=== PATIENT | male | born 1960 | race Asian ===

== ENCOUNTER 2018-07-09 08:20 | Inpatient (IN) | payer OTHER ==
[~2018-07-09] VITALS: Ht 162.6 cm; Wt 83.5 kg
[2018-07-09] VITALS (12 sets, daily range): BP systolic 98–136; BP diastolic 61–80
[2018-07-09] MEDS ORDERED: LISINOPRIL40 MG ORAL (10:32)
[2018-07-09] MEDS ORDERED: LISINOPRIL20 MG ORAL (10:32)
[2018-07-09] MEDS ORDERED: ATORVASTATIN CA20 MG ORAL (10:33)
[2018-07-09] MEDS ORDERED: ALLOPURINOL300 M1 ORAL (10:33)
[2018-07-09] MEDS ORDERED: TAMSULOSIN HCL0.4 MG ORAL (10:34)
[2018-07-09] MEDS ORDERED: ISOSORBIDE MONO30 M1 PO (10:34)
[2018-07-09] MEDS ORDERED: AMLODIPINE BESYL5 MG ORAL (10:35)
[2018-07-09] MEDS ORDERED: DYMISTA NASAL S23 GM NASAL (10:36)
[2018-07-09] MEDS ORDERED: FLUTICASONE PRO16 G1 NASAL (10:37)
[2018-07-09] MEDS ORDERED: PRESERVISION A1 EACH PO (10:38)
--- NOTE | 2018-07-09 11:24 | Anethesia Preoperative Eval ---
Anesthesia Pre-op PMH/ROS General Date of Evaluation: Jul 09, 2018 Anesthesiologist: Tomas ASA Score: ASA 2 Mallampati Score Class I : Soft palate, uvula, fauces, pillars visible Class II: Soft palate, uvula, fauces visible Class III: Soft palate, base of uvula visible Class IV: Only hard plate visible Mallampati Classification: Class III Surgeon: Alma Rosa Diagnosis: Lumbar radiculopathy Surgical Procedure: TLIF L4-5 Anesthesia History: none Social History: drug use - daily CBD use Family History: no anesthesia problems Allergies: Coded Allergies: AMOXICILLIN (Verified Adverse Reaction, Intermediate, diarrhea, 07/08/18) Patient NPO?: Yes NPO Date: Jul 08, 2018 NPO Time: 2300 Past Medical History Cardiovascular: Reports: HTN, other - HLD, h/o angina-but solely presents when patient is having an anxiety attact. Cardiac workup negative. Patient able to walk 10+ (unlimitted number of blocks) and go up 10+ flights of stairs without angina or dyspnea.; Denies: CAD, SD, valve dz, arrhythmia Pulmonary: Denies: asthma, COPD, JAMES, other Gastrointestinal/Genitourinary: Reports: GERD, other - BPH; Denies: CRI, ESRD Neurologic/Psychiatric: Reports: depression/anxiety; Denies: dementia, CVA, TIA, other Endocrine: Denies: DM, hypothyroidism, steroids, other HEENT: Reports: other - macular degeneration-bilateral, tinnitus, TMJ; Denies: cataract (L), cataract (R), glaucoma, YOCHA DEHE (L), YOCHA DEHE (R) Hematology/Immune: Denies: anemia, DVT, bleeding disorder, other Musculoskeletal/Integumentary: Reports: OA, other - gout; Denies: RA, DJD, DDD, edema PSxH Narrative: septoplasty Anesthesia Pre-op Phys. Exam Physician Exam Last Vital Signs Date Time Temp Pulse Resp B/P (MAP) Pulse Ox O2 Delivery O2 Flow Rate FiO2 07/09/18 11:15 Room Air 07/09/18 11:12 97.7 54 20 105/62 (76) 97 Constitutional: NAD Cardiovascular: RRR Respiratory: CTA Airway Exam Mallampati Score: Class III MO: full ROM: full Teeth: missing - 1 bottom right, intact Anesthesia Pre-op A/P Labs see chart Studies Pre-op Studies: EKG - sr Risk Assessment & Plan Assessment: ASA II Plan: GA Status Change Before Surgery: No Pre-Antibiotics Drug: Ancef 2g Given Within 1 Hr of Incision: Yes Fallon Fajardo MD Jul 09, 2018 11:24
[2018-07-09] MEDS ORDERED: LR 1000ml 1,000 ML IVLG SCH (11:31)
[2018-07-09] MEDS ORDERED: Thrombin 5000 units spray kit TOPIC ONE (11:38)
[2018-07-09] MEDS ORDERED: Thrombin 5000 units TOPIC ONE ×2 (11:38→11:40)
[2018-07-09] MEDS ORDERED: Gelfoam Size TOPIC ONE (11:39)
[2018-07-09] MEDS ORDERED: Bupivacaine 0.5% Inj 30 ml vial INJ ONE (11:39)
[2018-07-09] MEDS ORDERED: Lidocaine 1% 10mg/ml/Epi 0.005mg/ml 30ml vial INJ ONE (11:39)
[2018-07-09] MEDS ORDERED: Bacitracin 50000 Units Vial ONE (11:39)
[2018-07-09] MEDS ORDERED: Gelfoam Absorbable 1gm powder pkt TOPIC ONE (11:39)
[2018-07-09] MEDS ORDERED: SAM E PO (11:40)
[2018-07-09] MEDS ORDERED: CITALOPRAM HBR40 M1 ORAL (11:40)
[2018-07-09] MEDS ORDERED: DHEA TABLET1 EACH PO (11:42)
[2018-07-09] MEDS ORDERED: GARLIC1000 MG PO (11:42)
[2018-07-09] MEDS ORDERED: CILOSTAZOL100 MG PO (11:43)
[2018-07-09] MEDS ORDERED: SUPER B-50 COM1 EACH PO (11:44)
[2018-07-09] MEDS ORDERED: LORazepam Inj 2mg/ml 1ml IV PRN (11:45)
[2018-07-09] MEDS ORDERED: Midazolam 2mg/2ml Inj IVP PRN (11:45)
[2018-07-09] MEDS ORDERED: fentaNYL 100 mcg/2 mL IV PRN (11:45)
[2018-07-09] MEDS ORDERED: DiphenhydrAMINE 50mg/ml Inj IVP PRN ×2 (11:45→18:15)
[2018-07-09] MEDS ORDERED: DICLOFENAC SODI75 MG ORAL (11:45)
[2018-07-09] MEDS ORDERED: Hydromorphone 0.5mg/0.5ml inj IVP PRN (11:45)
[2018-07-09] MEDS ORDERED: Metoclopramide 10mg/2ml Inj IVP PRN (11:45)
[2018-07-09] MEDS ORDERED: [UNRECOGNIZED DRUG - OTHER] PO (11:47)
[2018-07-09] MEDS ORDERED: CRANBERRY500 M4 PO (11:50)
[2018-07-09] MEDS ORDERED: CULTURELLE1 EACH ORAL (11:51)
[2018-07-09] MEDS ORDERED: fentaNYL 100 mcg/2 mL IV ONE ×2 (11:51→15:28)
[2018-07-09] MEDS ORDERED: Midazolam 2mg/2ml Inj ONE (11:51)
[2018-07-09] MEDS ORDERED: Lidocaine 1% MPF 10mg/ml 5ml ONE (11:51)
[2018-07-09] MEDS ORDERED: Propofol 200mg/20ml IV ONE (11:51)
[2018-07-09] MEDS ORDERED: LORATADINE10 M2 PO (11:52)
[2018-07-09] MEDS ORDERED: Dexamethasone 4mg/ml vial ONE (11:52)
[2018-07-09] MEDS ORDERED: TEMAZEPAM15 MG ORAL (11:53)
[2018-07-09] MEDS ORDERED: Lidocaine 1% Plain 30 ml INJ ONE ×2 (11:53→15:06)
[2018-07-09] MEDS ORDERED: MECLIZINE HCL25 MG ORAL (11:53)
[2018-07-09] MEDS ORDERED: LIDOCAINE 5% TOPIC (11:56)
--- NOTE | 2018-07-09 11:56 | Pre-Procedure Note/Attestation ---
Pre-Procedure Note/Attestation Complete Prior to Procedure Planned Procedure: left Procedure Narrative: L4-5 TLIF Indications for Procedure Pre-Operative Diagnosis: L4-5 disc hernia / movement Attestation I attest that I discussed the nature of the procedure; its benefits; risks and complications; and alternatives (and the risks and benefits of such alternatives ), prior to the procedure, with the patient (or the patient's legal education courses sales representative). I attest that, if there was a reasonable possibility of needing a blood transfusion, the patient (or the patient's legal education courses sales representative) was given the [facility] standardized written summary, pursuant to the Migue Perri Blood Safety Act ([place] Health and Safety Code # 1645, as amended). I attest that I re-evaluated the patient just prior to the surgery and that there has been no change in the patient's H&P, except as documented below: LACHO GONZALEZ Jul 09, 2018 11:56
[2018-07-09] MEDS ORDERED: CENTRUM COMPLE1 EAC1 PO (11:58)
[2018-07-09] MEDS ORDERED: LR 1000ml ONE (12:00)
[2018-07-09] MEDS ORDERED: Sterile Water Irrig 1000ml IRRIG ONE (12:00)
[2018-07-09] MEDS ORDERED: NS Irrig 1000ml IRRIG ONE ×2 (12:12→13:32)
[2018-07-09] MEDS ORDERED: Meclizine 25mg tab ORAL PRN (12:30)
[2018-07-09] MEDS ORDERED: Chloraseptic Spray 20mL Bottle ORAL PRN (12:30)
[2018-07-09] MEDS ORDERED: Hydromorphone 0.5mg/0.5ml inj SUBQ PRN (12:30)
[2018-07-09] MEDS ORDERED: Rate Change PCA 1 Each MISC PRN (12:45)
[2018-07-09] MEDS ORDERED: PCA HYDROmorphone 1mg/ml 30 ML IV PRN (13:30)
[2018-07-09] MEDS ORDERED: Zemuron 50mg/5ml Inj IV ONE (13:59)
[2018-07-09] MEDS ORDERED: Bupivacaine 0.25% Inj 30ml INJ ONE (15:29)
[2018-07-09] MEDS ORDERED: Isovue-M 300 15ml INJ ONE (15:29)
[2018-07-09] MEDS ORDERED: Neostigmine 1mg/ml 10ml Inj ONE (15:41)
[2018-07-09] MEDS ORDERED: Glycopyrrolate 0.2mg/ml 1ml Vial ONE (15:41)
--- NOTE | 2018-07-09 16:27 | Brief Operative Note ---
Immediate Post Operative Note Operative Note Chief Complaint: LBP Pre-op Diagnosis: L4-5 disc hernia / movement Procedure: Left L4-5 TLIF Post-op Diagnosis: same as pre-op Findings: consistent w/pre-op dx studies Surgeon: Charles St Offset Lithographic Press Operator: Bhavya Paul Anesthesiologist: Treva Marin Anesthesia: general Specimen: yes - DIsc Complications: none Condition: stable Fluids: See Anesths Estimated Blood Loss: minimal Drains: hemovac Implant(s) used?: Yes - LACHO Wilkinson Jul 09, 2018 16:27
--- NOTE | 2018-07-09 16:45 | Immediate Post-Op Evaluation ---
Immediate Post-Op Evalulation Immediate Post-Op Evalulation Procedure: TLIF L4-5 Date of Evaluation: Jul 09, 2018 Time of Evaluation: 16:45 IV Fluids: 1.7L Blood Products: 0 Estimated Blood Loss: 100 Urinary Output: 220 Blood Pressure Systolic: 100 Blood Pressure Diastolic: 75 Pulse Rate: 55 Respiratory Rate: 17 O2 Sat by Pulse Oximetry: 100 Temperature (Fahrenheit): 98.1 Pain Score (1-10): 0 Nausea: No Vomiting: No Complications 0 Patient Status: awake, reacts, patent, none Hydration Status: adequate Drug: Ancef 2g Given Within 1 Hr of Incision: Yes Fallon Fajardo MD Jul 09, 2018 16:45
--- NOTE | 2018-07-09 18:39 | NUR ---
NURSE NOTES: Received report from ELAN Ambriz from PACU. Pt in bed, resting, sleepy, but talkative. Vitals obtain, assessment done, see flowsheet. SECURITY CHECKER running according to order, Clear Liquid diet tray at bedside for pt when ready, SCD on and working, belongings verified and at bedside, bed in lowest position, call light within reach.
[2018-07-09] MEDS: PCA shift volume MISC SCH (19:00)
[2018-07-09] MEDS: Flonase Nasal Inhaler 16gm NASAL SCH (19:02)
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
--- NOTE | 2018-07-09 19:42 | NUR ---
HAND-OFF: Report given to ELAN Sanchez.
--- NOTE | 2018-07-09 19:45 | NUR ---
NURSE NOTES: Received report from ELAN Maciel. Received pt lying in bed, AOX4, denies pain at this time. Pt on VICE PRESIDENT CORPORATE COMMUNICATIONS for pain management. VICE PRESIDENT CORPORATE COMMUNICATIONS setting checked and verified. Surgical dressing C/D/I. Hemovac in place serosanguineous drainage. Encouraged pt to use IS every hour x 10 while awake. Pt verbalized understanding. Burris catheter with yellow output. No distress noted. Bed in lowest position and locked, side rails up x 2, call light within reach. Will continue to monitor.
[2018-07-09] MEDS ORDERED: PCA Education Pamphlet MISC ONE (20:00)
--- NOTE | 2018-07-09 20:00 | NUR ---
NURSE NOTES: Pt c/o dry eyes. Paged Dr. Prater awaiting for call back.
--- NOTE | 2018-07-09 20:20 | NUR ---
NURSE NOTES: Dr. Prater called back orders given for dry eyes. Will carry out order.
[2018-07-09] MEDS: ceFAZolin sod 1 GM in D5W 55 ML IV SCH (20:39)
[2018-07-09] MEDS: Atorvastatin 20mg tab ORAL SCH (20:42)
[2018-07-09] MEDS: Tamsulosin 0.4mg cap ORAL SCH (20:43)
[2018-07-09] MEDS ORDERED: Artificial Tears 1.4% Op Soln BOTH EYES PRN (20:45)
[2018-07-09] MEDS: Lisinopril 20mg tab ORAL SCH (20:49)
[2018-07-09] MEDS ORDERED: Dronabinol 2.5mg Cap ORAL SCH (21:00)
[2018-07-09] MEDS: oxyCODONE 5mg IR tab ORAL PRN (23:42)
[2018-07-10] VITALS: BP 116/75
[2018-07-10 04:00] VITALS: BP 144/63
[2018-07-10] MEDS: ceFAZolin sod 1 GM in D5W 55 ML IV SCH ×2 (04:16→12:22)
--- NOTE | 2018-07-10 04:30 | NUR ---
NURSE NOTES: Assisted pt to the restroom, pt states "I have to have a bowel movement", offered bedpan, pt refused. Pt ambulated to the restroom with walker, gait steady, no B.M. Pt safely back to bed without any problems.
--- NOTE | 2018-07-10 04:45 | NUR ---
NURSE NOTES: Pt c/o generalize itchiness, Benadryl 25mg PO last given at 0415. Pt is requesting additional Benadryl 50mg for itching. Also, pt wants Dr. Prater to order all his supplement medications. Paged Dr. Prater, awaiting for call back.
--- NOTE | 2018-07-10 05:15 | NUR ---
NURSE NOTES: Dr. Prater called back did not want to order additional Benadryl 50mg PO. Per Dr. Prater, he is on his way to see the pt and he will take care of it.
--- NOTE | 2018-07-10 05:20 | NUR ---
NURSE NOTES: Assessed pt pain level, per pt pain his pain level is 8/10. offered Dilaudid 0.5mg sub cut., pt refused. RN offered Oxycodone 10mg PO, pt refused. Pt states "My pain is not that bad, I will call you when I can no longer handle it".
--- NOTE | 2018-07-10 05:35 | NUR ---
NURSE NOTES: Dr. Prater here to see pt., informed MD that pt refused Dilaudid sub cut and Oxycodone pain medication. Urine toxicology collected and taken down to lab per Dr. Prater's order.
[2018-07-10] MEDS ORDERED: HYDROcodone/Acetamin 10/325 tab ORAL PRN (06:00)
[2018-07-10] MEDS ORDERED: HydrOXYzine tab 25mg tab ORAL SCH (06:00)
[2018-07-10] MEDS ORDERED: Artificial Tears 1.4% Op Soln BOTH EYES SCH (06:00)
[2018-07-10] MEDS ORDERED: Artificial Tears 1.4% Op Soln BOTH EYES PRN (06:15)
--- NOTE | 2018-07-10 06:54 | NUR ---
CASE MANAGEMENT:REVIEW 07/09/18 57 YR OLD MALE HERE FOR ELECTIVE SURGERY SI:LOWER BACK PAIN 97.7 54 20 105/62 97% ON RA IS: TO SURGERY: LEFT L4-5 TLIF : TO MED/SURG 3 EAST POST OP INTERQUAL CRITERIA MET 07/10/18 SI: POD #1 97.7 61 20 144/63 100% ON 2L/NC IS: IV ANCEF Q8HRS UNDERWRITER SOLICITATION DIRECTOR MORPHINE IVF@100/HR : MED/SURG STATUS 3 EAST
[2018-07-10] MEDS: PCA shift volume MISC SCH ×2 (07:11→19:00)
--- NOTE | 2018-07-10 07:15 | NUR ---
HAND-OFF: Report given to ELAN Avery. Pt in stable condition.
[2018-07-10 07:36] LABS: ANION GAP 9 mmol/L (5-15); BLOOD UREA NITROGEN 13 mg/dL (7-18); CALCIUM 8.6 MG/DL (8.5-10.1); CARBON DIOXIDE 28 MMOL/L (21-32); CHLORIDE 103 MMOL/L (98-107); CREATININE 0.8 MG/DL (0.55-1.30); POTASSIUM 4.2 MMOL/L (3.5-5.1); SODIUM 140 MMOL/L (136-145)
--- NOTE | 2018-07-10 07:45 | NUR ---
NURSE NOTES: Received report from Daniel ANSARI. Patient is awake alert and oriented x4, no acute distress noted. Reporting no pain at this time. KEY ACCOUNT COORDINATOR settings checked against order. Hemovac compressed. IVF running per order, SCD's in place, huntley to gravity drainage, draining clear, yellow urine. Side rails upx3, bed low and locked, call light in reach . Will continue to monitor.
--- NOTE | 2018-07-10 07:45 | Progress Note ---
DATE: 07/10/2018 ACUTE PAIN MANAGEMENT PHYSICIAN PROGRESS NOTE MEDICATIONS: Medication administration record reviewed. Medications include IV fluids, Flonase, Colace, Lipitor, Flomax, Pepcid, allopurinol, Celexa, Isordil, Dilaudid WETLAND SCIENTIST, Marinol, Prinivil, Ancef, Norvasc, and Urecholine. PRN medications include Fioricet, Benadryl, Soma, Chloraseptic spray, Catapres, Dilaudid, Mylanta, Zofran, Tylenol, Claritin, meclizine, Narcan, artificial tears. LABORATORY STUDIES: From this morning are pending. OBJECTIVE: VITAL SIGNS: Afebrile, pulse 62, respirations 20, blood pressure 116/75, and oxygen saturation 97% on room air. I spent over 60 minutes in consultation today. I saw the patient at the bedside after discussion with overnight nurse RN, Daniel. I spoke with the hospital pharmacist, Ronak along with the surgeon, Dr. St. The patient was able to ambulate out of bed overnight with assistance. With his history of benign prostatic hypertrophy, I will keep the indwelling Burris catheter in place for now. I would recommend to trial of discontinuation tomorrow morning after further doses of Urecholine and Flomax. The patient has been having significant itching overnight. It is unclear if the itching is due to the Dilaudid WETLAND SCIENTIST or the oxycodone, or other culprit. The patient did fail trial of Benadryl 25 milligrams already. I will trial him on Atarax 25 mg orally. Additionally, the patient now clarified that he believes hydrocodone was tolerated after his nasal surgeries, not the oxycodone and Percocet. Therefore, I will trial hydrocodone po prn, plus change breakthrough pain injections from Dilaudid to morphine 4 mg intramuscularly every three hours p.r.n. for severe pain. We will try to put the Dilaudid WETLAND SCIENTIST on-hold to see if the Atarax is affective. The patient has been getting good pain relief from the Dilaudid WETLAND SCIENTIST, to the point that he was able to ambulate out of bed earlier. Physical therapy will train the patient later today with proper mobility technique. The patient has had no nausea symptoms. We will advance his diet as tolerated. We will continue to monitor the patient's blood pressure closely, which has been in the good range. His baseline antihypertensive medications will continue with, several hold parameters. I did ask the patient to clarify why he is on Imdur nitrates. The patient states that he does get intermittent chest pains. He does not take nitrates on a regular basis, but did use it several days ago at home. He denies previous heart attack. We will continue the nitrate here in the hospital if his blood pressure tolerates. Currently, the patient denies any shortness of breath or chest pain. The indwelling lumbar spine drain catheter remains in-place. Since the patient is not ambulated extensively, I will continue the drain in-place for another 24 hours, with expected removal tomorrow morning. The patient has been using CBD oil nightly for the past month. He did tolerate the oral Marinol, which I dosed yesterday evening. I will double the dosing to q.12 hours. This all could be potential reason for the itching. So, overall, the patient is progressing okay. He has had several roadbumps in his recovery such as complains of itchy eyes, significant itching, and mild numbness in his left fourth and fifth digits. All of these symptoms hopefully should resolve spontaneously in the next 24 hours with continued supportive care. We will continue to monitor the patient closely. The patient does live alone without any support at home, so Dr. St and I would recommend the patient continue here in the hospital until he is able to demonstrate more independence prior to hospital discharge. Gal Prater M.D. DR: CARLTON JOB#: [id number] CC: ALBAN
[2018-07-10 08:00] VITALS: BP 124/68
[2018-07-10] MEDS: Docusate 100mg cap ORAL SCH ×2 (08:47→18:08)
[2018-07-10] MEDS: Dronabinol 2.5mg Cap ORAL SCH ×2 (08:47→21:31)
[2018-07-10] MEDS: Flonase Nasal Inhaler 16gm NASAL SCH ×2 (08:47→18:08)
[2018-07-10] MEDS: Citalopram Hydrobromide 10mg Tab ORAL SCH (08:48)
[2018-07-10] MEDS: Bethanechol 25mg Tab ORAL SCH ×3 (08:49→18:08)
[2018-07-10] MEDS ORDERED: Dronabinol 2.5mg Cap ORAL SCH (09:00)
[2018-07-10] MEDS: Imdur 30mg tab ORAL SCH (09:00)
[2018-07-10] MEDS: Lisinopril 20mg tab ORAL SCH ×2 (09:00→21:30)
[2018-07-10] MEDS: oxyCODONE 5mg IR tab ORAL PRN ×2 (11:55→16:30)
[2018-07-10 12:00] VITALS: BP 111/81
[2018-07-10] MEDS ORDERED: LR 1000ml ONE (12:00)
[2018-07-10] MEDS ORDERED: Sterile Water Irrig 1000ml IRRIG ONE (12:00)
--- NOTE | 2018-07-10 12:33 | 48 Hour Post Anesthesia Eval ---
Post Anesthesia Evaluation Procedure: TLIF L4-5 Date of Evaluation: Jul 10, 2018 Time of Evaluation: 12:32 Blood Pressure Systolic: 134 0: 65 Pulse Rate: 76 Respiratory Rate: 20 Temperature (Fahrenheit): 97.6 O2 Sat by Pulse Oximetry: 98 Airway: patent Nausea: No Vomiting: No Pain Intensity: 3 Hydration Status: adequate Cardiopulmonary Status: stable Mental Status/LOC: patient returned to baseline Follow-up Care/Observations: n/a Post-Anesthesia Complications: none Follow-up care needed: N/A Rony Romano MD Jul 10, 2018 12:33
--- NOTE | 2018-07-10 13:42 | NUR ---
NURSE NOTES: Patient reminded multiple times to not get out of bed without calling for assistance first. Patient got out of bed x2 without calling for staff assistance first. Patient educated on safety and re-educated on use of call light and reminded to always call for assistance before getting OOB. Patient is acting aggressively with staff, called ROLL SHOP SUPERVISOR an expletive, yelled at charge nurse. Patients needs are being met and staff is answering call light in timely manner. Will continue to monitor.
[2018-07-10] MEDS ORDERED: Tubing IV Secondary IV ONE (14:45)
[2018-07-10 16:00] VITALS: BP 102/62
--- NOTE | 2018-07-10 19:37 | NUR ---
HAND-OFF: Report given to Diana ANSARI. Patient is in stable condition.
--- NOTE | 2018-07-10 19:38 | NUR ---
NURSE NOTES: Received report & pt from ELAN Avery. Pt lying in bed, a&ox4, in room air. No s/s of acute distress & no c/o pain. IV site intact with IVF running as ordered. PULLER MACHINE settings checked. Hemovac compressed, surgical dressing C/D/I. Bed in lowest position, call light & PULLER MACHINE pump within reach. Will continue to monitor.
[2018-07-10 20:00] VITALS: BP 123/67
[2018-07-10] MEDS: Atorvastatin 20mg tab ORAL SCH (21:30)
[2018-07-10] MEDS: Tamsulosin 0.4mg cap ORAL SCH (21:31)
[2018-07-11] VITALS: BP 129/71
[2018-07-11 04:00] VITALS: BP 112/70
--- NOTE | 2018-07-11 06:00 | NUR ---
NURSE NOTES: Removed F/C as ordered by . Told pt to inform RN of first void.
--- NOTE | 2018-07-11 06:30 | NUR ---
NURSE NOTES: @ 2000, pt febrile 100.6 oral, encouraged to use IS often & cooling measured provided. Tylenol PRN given. Temp re-checked down to 100F oral. [address] Prater is aware of fever with no new orders.
[2018-07-11] MEDS: oxyCODONE 5mg IR tab ORAL PRN ×5 (06:32→22:53)
--- NOTE | 2018-07-11 06:45 | NUR ---
NURSE NOTES: Dr. Prater d/c'd hemovac. No bleeding noted. Pt in no acute distress.
--- NOTE | 2018-07-11 07:30 | NUR ---
HAND-OFF: Report given to ELAN Conklin
--- NOTE | 2018-07-11 07:35 | NUR ---
NURSE NOTES: Patient lying in bed awake. No complain of pain or distress at this time. Skin intact and dry. Surgical dressing intact an dry. IV dressing intact and dry. Bed lowest position. Call light within reach. Will continue to monitor.
[2018-07-11 08:00] VITALS: BP 127/75
[2018-07-11] MEDS: Lisinopril 20mg tab ORAL SCH ×2 (09:00→21:49)
[2018-07-11] MEDS: Imdur 30mg tab ORAL SCH (09:00)
[2018-07-11] MEDS: Docusate 100mg cap ORAL SCH ×2 (09:29→17:32)
[2018-07-11] MEDS: Flonase Nasal Inhaler 16gm NASAL SCH ×2 (09:29→17:31)
[2018-07-11] MEDS: Citalopram Hydrobromide 10mg Tab ORAL SCH (09:30)
[2018-07-11] MEDS: Sennosides 8.6mg tab ORAL SCH ×2 (09:30→17:31)
[2018-07-11] MEDS: Bethanechol 25mg Tab ORAL SCH ×3 (09:30→17:32)
[2018-07-11] MEDS: Dronabinol 2.5mg Cap ORAL SCH ×2 (09:30→21:49)
[2018-07-11 12:00] VITALS: BP 138/62
--- NOTE | 2018-07-11 12:25 | NUR ---
CASE MANAGEMENT:REVIEW 07/11/18 SI: POD #1 S/P LEFT L4-5 TLIF 100.6 80 19 138/62 95% ON RA IS: ALLOPURINOL PO QD CELEXA PO QD IMDUR PO QD MARINOL PO Q12 NORVASC PO QHS LISINOPRIL PO Q12 FLOMAX PO QHS OXYCODONE 10MG PO Q3HRS : MED/SURG STATUS 3 EAST PLAN: MONITOR TEMP
--- NOTE | 2018-07-11 13:30 | NUR ---
NURSE NOTES: Called family member Porsha and notify that patient will discharge tomorrow.
--- NOTE | 2018-07-11 15:45 | Progress Note ---
DATE: 07/11/2018 ACUTE PAIN MANAGEMENT PHYSICIAN PROGRESS NOTE MEDICATIONS: Medication administration record reviewed. Medications include IV fluids, Dilaudid ELEMENTARY INSTRUCTIONAL COACH, Flonase, Colace, Lipitor, Flomax, Pepcid, allopurinol, Celexa, Imdur, Marinol, lisinopril, Norvasc, Urecholine. PRN medications include Fioricet, Soma, Chloraseptic, Catapres, oxycodone, Mylanta, Zofran, Tylenol, Claritin, meclizine, Narcan, Artificial Tears, Benadryl, Atarax, [place], morphine. LABORATORY STUDIES: From yesterday 07/10/2018 shows sodium 140, potassium 4.2, chloride 103, bicarb 28, BUN 13, creatinine 0.8, glucose 108, calcium 8.6. Vital signs shows T-max and T current is 100.0, pulse 78, respirations 18, blood pressure 112/70, oxygen saturation 97% on room air. I spent over 60 minutes in consultation today. I saw the patient at bedside with the nurse RN, Diana. I discussed the case in detail with the surgeon, Dr. St. I also discussed the case with the patient's director of admissions, the office for Mr. Dougherty; as the surgeon, Dr. St has recommended that the patient have home health set up when he discharged to home, hopefully tomorrow. The patient has been increasing his ambulation. He is increasing his diet without nausea problems. The patient denies any shortness of breath or chest pain. He remains on Imdur for his history of angina. The patient has been continuing with his Dilaudid ELEMENTARY INSTRUCTIONAL COACH and the itching complaints have improved. Additionally, his dry eyes, irritation, and his finger numbness have also improved, as was expected to occur spontaneously. Output from the indwelling lumbar spine drain catheter overnight was minimal. This morning, we removed the Burris catheter. The patient is already on Flomax and Urecholine to help reduce the risk for urinary retention issues. Hopefully with ambulation with this morning, the patient will be able to void urine without problems. I have ordered Senokot to complement the b.i.d. Colace to help with bowel regularity. The patient has been tolerating 4 doses of oxycodone 10 mg without any adverse side effects. I have left a prescription for 60 tablets of Percocet 10/325 for outpatient usage. The patient states that his itching complaints have improved. The low-grade fever is likely postoperative atelectasis. I did encourage aggressive incentive spirometer usage. Incentive spirometer is at the bedside. The increased dose of Marinol to q.12 hours. Has not had any untoward side effects. I will continue this dosing for now. The patient does have CBD oil to use at home. With the nurse RN, Diana at the bedside, the patient was turned to the right lateral decubitus position, so I could examine the lumbar spine wound. The dressing was removed showing both incision lines clean and dry with Steri-Strips in place. I cut the suture holding in the indwelling lumbar spine drain catheter. Then at the end-expiration, with the Hemovac drain taken off of suction, I personally removed the indwelling lumbar spine drain catheter. The tip was intact. Alcohol swab was applied over the drain hole site. Sterile island bordered gauze dressings were then applied over the incision areas and drain hole site without any complications. Gal Prater M.D. DR: LEIF JOB#: [id number] AL[place]AN
[2018-07-11] MEDS: HydrOXYzine tab 25mg tab ORAL PRN ×2 (15:51→21:52)
[2018-07-11 16:00] VITALS: BP 143/92
--- NOTE | 2018-07-11 18:20 | NUR ---
NURSE NOTES: Spoke to Yumiko (Policy Writer) regarding discharge. Per Yumiko: and Yumiko arranged to discharge patient on Saturday. and family member notified.
--- NOTE | 2018-07-11 19:25 | NUR ---
NURSE NOTES: Spoke to regarding discharge. Per : Yumiko (exercise planner), and spoke regarding discharge and arranged discharge tomorrow morning. Patient and family member notified.
--- NOTE | 2018-07-11 19:30 | NUR ---
HAND-OFF: Report given to Daniel ANSARI. Patient in stable condition.
[2018-07-11 20:00] VITALS: BP 135/81
[2018-07-11] MEDS: Tamsulosin 0.4mg cap ORAL SCH (21:47)
[2018-07-11] MEDS: Atorvastatin 20mg tab ORAL SCH (21:48)
[2018-07-12] MEDS: oxyCODONE 5mg IR tab ORAL PRN ×6 (01:57→22:30)
--- NOTE | 2018-07-12 02:02 | NUR ---
NURSE NOTES: Received pt ambulating and c/o pain to lower back radiating to R hip. Pain medication and ice pack provided. Treatment effective. Pt AOx4. No acute distress at this time. Encouraged pt to utilize call button when in need of assistance.
[2018-07-12 04:00] VITALS: BP 127/79
[2018-07-12] MEDS ORDERED: Milk of Magnesia 30ml Ud ORAL ONE (06:26)
[2018-07-12] MEDS ORDERED: Milk of Magnesia 30ml Ud ORAL PRN (06:30)
--- NOTE | 2018-07-12 07:26 | NUR ---
HAND-OFF: Report given to Rubin ANSARI.
--- NOTE | 2018-07-12 07:30 | NUR ---
NURSE NOTES: Patient lying in bed awake. No complain of pain or distress at this time. Skin intact and dry. Surgical dressing intact and dry. IV dressing intact and dry. Bed lowest position. Call light within reach. Will continue to monitor.
[2018-07-12 08:00] VITALS: BP 105/71
[2018-07-12] MEDS: Lisinopril 20mg tab ORAL SCH ×2 (09:00→21:00)
[2018-07-12] MEDS: Imdur 30mg tab ORAL SCH (09:00)
[2018-07-12] MEDS: Docusate 100mg cap ORAL SCH ×2 (09:09→17:13)
[2018-07-12] MEDS: Flonase Nasal Inhaler 16gm NASAL SCH ×2 (09:09→17:13)
[2018-07-12] MEDS: Dronabinol 2.5mg Cap ORAL SCH ×2 (09:10→21:21)
[2018-07-12] MEDS: Sennosides 8.6mg tab ORAL SCH ×2 (09:10→17:13)
[2018-07-12] MEDS: Citalopram Hydrobromide 10mg Tab ORAL SCH (09:10)
[2018-07-12] MEDS: HydrOXYzine tab 25mg tab ORAL PRN ×2 (11:25→18:47)
[2018-07-12 12:00] VITALS: BP 109/71
--- NOTE | 2018-07-12 13:00 | NUR ---
NURSE NOTES: Patient complained both side calf and hip pain. Notified and new order received. Order read back and carried out. Will continue to monitor.
--- NOTE | 2018-07-12 13:05 | NUR ---
NURSE NOTES: Called Ultrasound but no answering phone. Left massage that patient has STAT Ultrasound. Waiting for call back.
[2018-07-12 16:00] VITALS: BP 114/71
--- NOTE | 2018-07-12 16:00 | NUR ---
NURSE NOTES: Called ultrasound but no answer. Overhead paged ultrasound but no call back. Charge nurse and nutritional yeast supervisor aware. Will follow up with ultrasound.
--- NOTE | 2018-07-12 16:00 | Progress Note ---
DATE: 07/12/2018 ACUTE PAIN MANAGEMENT PHYSICIAN PROGRESS NOTE MEDICATIONS: Medication administration record reviewed. Medications include Flomax, Senokot, Chloraseptic spray, oxycodone, Zofran, morphine, meclizine, Claritin, Prinivil, Imdur, Atarax, Flonase, Pepcid, Marinol, Colace, Benadryl, Catapres, Celexa, Urecholine, Lipitor, Artificial Tears, Norvasc, allopurinol, Mylanta, Tylenol. LABORATORY STUDIES: No interval laboratory studies. VITAL SIGNS: T-max at midnight 100.1, current temperature afebrile at 97.7, pulse 72, respirations 18, blood pressure 127/79, oxygen saturation 97% on room air. I spent over 60 minutes in consultation today. I saw the patient at bedside with the nurse, ELAN Sanchez. I had multiple discussions with the surgeon, Dr. St. After the CUSTOMER ORDER CLERK was discontinued, the patient has been doing adequately using the oral oxycodone 10 mg, nearly every 3 hours [id number] for analgesia. He has been ambulating greater than 300 feet and frequently with his front-wheeled walker at the bedside. The patient is able to independently move in and out of bed with ease, albeit pain. I will continue the oxycodone instant release 10 mg as currently dosed every 3 hours p.r.n. along with breakthrough intramuscular morphine as needed. The patient's itching complaints have resolved. The patient denies any shortness of breath or chest pain. He will remain on Imdur for his history of cardiac angina. I did encourage aggressive usage of incentive spirometer to encourage good pulmonary toilet. He still has had low-grade fevers at night, likely contributed to postoperative pulmonary atelectasis. I encouraged more compliant usage of incentive spirometer. After the Burris catheter was removed, the patient has been voiding urine without difficulties. He is tolerating q.2-hour dosing of Marinol without oversedation. Since he is voiding urine well, I will discontinue Urecholine, but continue his Flomax which he uses chronically. I placed the patient on Senokot yesterday b.i.d. I will follow this up with a dose of milk of magnesia this morning since he has not yet had a bowel movement. He also will continue with Colace b.i.christophe. His blood pressure has been well controlled on his current antihypertensive regimen. P.r.n. antihypertensive medications remain available as well. I will continue his Celexa for mood stabilization. His eye complaints have resolved, and we will continue Artificial Tears on a p.r.n. basis. With the patient standing in the room, I examined the lumbar spine dressing. The dressing appeared clean and dry. I removed the island border gauze dressings placed yesterday to reveal the incision line clean and dry. Steri-Strips were intact. There was no evidence for erythema or exudate. The drain hole site was healing nicely. I replaced fresh island border gauze dressing, 6 x 6 inches, x2 over the back wound without any complications. Gal Prater M.D. DR: Charanjit JOB#: [id number] CC:
--- NOTE | 2018-07-12 19:30 | NUR ---
HAND-OFF: Called ultrasound several times and left massage but no called back. Report given to Karen ANSARI. Patient in stable condition.
--- NOTE | 2018-07-12 19:58 | NUR ---
NURSE NOTES: Received report from ELAN Conklin. Patient is aaox4. No signs of distress. IV site hep-locked, Posterior dressing clean and dry. pain 3/10 lower back, 4/10 bilateral calfs. No swelling/redness/warmth noted. Neuro checks WNL. Will continue to monitor. Bed low, call light within reach.
[2018-07-12 20:00] VITALS: BP 124/75
[2018-07-12] MEDS: Tamsulosin 0.4mg cap ORAL SCH (21:20)
[2018-07-12] MEDS: Atorvastatin 20mg tab ORAL SCH (21:21)
--- NOTE | 2018-07-12 22:39 | NUR ---
NURSE NOTES: c/o pain bilateral lower extremities 10/10. PRN Roxicodone given. Per microbiological laboratory technician, venous duplex negative for DVT. Will continue to monitor.
--- NOTE | 2018-07-12 23:10 | Diagnostic Imaging Report ---
EXAM: US Duplex Bilateral Lower Extremity Veins CLINICAL HISTORY: DVT TECHNIQUE: Real-time duplex ultrasound scan of the bilateral lower extremity veins integrating B-mode two-dimensional vascular structure, Doppler spectral analysis, color flow Doppler imaging and compression. COMPARISON: No relevant prior studies available. FINDINGS: Right deep veins: Unremarkable. No DVT in the right common femoral, femoral, proximal deep femoral or popliteal veins. The veins demonstrate normal color flow, are normally compressible, with normal phasic flow and/or augmentation response. Right superficial veins: Unremarkable. No thrombus in the visualized right great saphenous vein. Left deep veins: Unremarkable. No DVT in the left common femoral, femoral, proximal deep femoral or popliteal veins. The veins demonstrate normal color flow, are normally compressible, with normal phasic flow and/or augmentation response. Left superficial veins: Unremarkable. No thrombus in the visualized left great saphenous vein. Soft tissues: No acute findings. No popliteal cyst. IMPRESSION: 1. Normal bilateral lower extremity DVT study. 2. No DVT seen.
[2018-07-12] MEDS: Morphine Sulfate 4mg/ml Inj (IV USE ONLY) IM PRN (23:33)
[2018-07-13] VITALS: BP 100/76
[2018-07-13] MEDS: oxyCODONE 5mg IR tab ORAL PRN ×7 (03:57→23:44)
[2018-07-13 04:00] VITALS: BP 110/64
--- NOTE | 2018-07-13 07:19 | NUR ---
HAND-OFF: Report given to ELAN Whelan. Patient stable.
[2018-07-13 08:00] VITALS: BP 139/72
[2018-07-13] MEDS: Imdur 30mg tab ORAL SCH (09:00)
[2018-07-13] MEDS: Lisinopril 20mg tab ORAL SCH ×2 (09:00→20:31)
[2018-07-13] MEDS: Docusate 100mg cap ORAL SCH ×2 (09:01→17:14)
[2018-07-13] MEDS: Dronabinol 2.5mg Cap ORAL SCH ×2 (09:02→20:30)
[2018-07-13] MEDS: Sennosides 8.6mg tab ORAL SCH ×2 (09:02→17:14)
[2018-07-13] MEDS: Citalopram Hydrobromide 10mg Tab ORAL SCH (09:03)
[2018-07-13] MEDS: Flonase Nasal Inhaler 16gm NASAL SCH ×2 (09:13→17:14)
[2018-07-13] MEDS ORDERED: HydrOXYzine tab 25mg tab ORAL PRN (11:00)
[2018-07-13] MEDS ORDERED: HydrOXYzine tab 25mg tab ORAL SCH (11:15)
--- NOTE | 2018-07-13 11:29 | NUR ---
NURSE NOTES: PT AXOX4, AMBULATING WITH WALKER AROUND UNIT. IN NO APPARENT DISTRESS AT THIS TIME. WILL CONTINUE TO MONITOR.
[2018-07-13] MEDS ORDERED: Magnesium Citrate Liq Btl ORAL SCH (13:15)
--- NOTE | 2018-07-13 15:04 | NUR ---
NURSE NOTES: PT AMBULATING WITH WALKER. IN NO APPARENT DISTRESS AT THIS TIME. WILL CONTINUE TO MONITOR.
[2018-07-13 15:56] VITALS: BP 122/66
--- NOTE | 2018-07-13 16:45 | NUR ---
PT Note Patient seen ambulating in hallway. Refused physical therapy this PM.
--- NOTE | 2018-07-13 17:14 | NUR ---
CASE MANAGEMENT:REVIEW 07/12/2018 SI: POD #2 S/P LEFT L4-5 TLIF T 99.5 HR 71 RR 18 B/P 124/75 SATS 98% ON RA NO LABS TODAY IS: ALLOPURINOL PO QD CELEXA PO QD IMDUR PO QD MARINOL PO Q12H NORVASC PO QHS LISINOPRIL PO Q12H FLOMAX PO QHS OXYCODONE 10MG PO Q3HRS : MED/SURG STATUS 3 EAST PLAN: MONITOR TEMP 07/13/2018 SI: POD #3 S/P LEFT L4-5 TLIF T 98.3 HR 66 RR 19 B/P 122/66 SATS 98% ON RA NO LABS TODAY IS: ALLOPURINOL PO QD CELEXA PO QD IMDUR PO QD MARINOL PO Q12H NORVASC PO QHS LISINOPRIL PO Q12H FLOMAX PO QHS OXYCODONE 10MG PO Q3HRS : MED/SURG STATUS 3 EAST PLAN: MONITOR TEMP
--- NOTE | 2018-07-13 19:12 | NUR ---
HAND-OFF: Report given to Pranay OLIVERA RN.
--- NOTE | 2018-07-13 19:15 | Progress Note ---
DATE: 07/13/2018 ACUTE PAIN MANAGEMENT PHYSICIAN PROGRESS NOTE MEDICATIONS: Medication administration record reviewed. Medications include Flonase, Colace, Lipitor, Flomax, Pepcid, Senokot, allopurinol, Celexa, Imdur, Marinol, lisinopril, and Norvasc. P.r.n. medication include Chloraseptic spray, Catapres, oxycodone, Mylanta, Zofran, Tylenol, Claritin, meclizine, Artificial Tears, Benadryl, Atarax, morphine, and milk of magnesia. LABORATORY STUDIES: No interval laboratory studies. OBJECTIVE: VITAL SIGNS: T-max is 99.5 yesterday at 8 p.m., currently afebrile, pulse 62, respirations 18, blood pressure 121/66, and oxygen saturation 98% on room air. DIAGNOSTIC DATA: Diagnostic testing shows lower extremity venous duplex ultrasound last night shows normal bilateral lower extremity DVT study, no DVT seen bilaterally. I spent over 60 minutes in consultation. I saw the patient at bedside with the nurse, Gloria Altamirano and discussed the case with the charge nurse, ELAN Burnett. I also spoke with the surgeon, Dr. St. Prescription remains in the chart for Percocet for outpatient usage. The patient continues on his scheduled dosing of Marinol q.12 h. along with p.r.n. dose of oxycodone nearly every three hours around the clock. He did use morphine one time overnight. Yesterday, the patient was complaining of calf pain. Bilateral lower extremity Doppler study was performed to rule out DVT. This study was negative and normal without evidence for DVT. The patient continues to ambulate quite frequently. He is more compliant using his incentive spirometer. The patient is complaining of normal postoperative lumbar spine pain. I tried to reassure the patient, to continue to encourage the patient, and to maintain aggressive ambulation to help with healing. The patient denies any shortness of breath or chest pain. He remains on nitrates and his antihypertensives. His blood pressure and pulse have been in the normal range. The patient is breathing comfortably on room air. At this time, the patient will continue in the hospital per the surgeon's consent, the patient lives alone. discharge is likely for tomorrow. Gal Prater M.D. DR: SAMIRA JOB#: [id number] CC:
--- NOTE | 2018-07-13 19:36 | NUR ---
NURSE NOTES: Received patient awake in bed, able to verbalize needs, 3/10 pain at this time, no s/s of acute distress. Bed on lowest position, 2 siderails up, call light and belongings within reach. Dressing noted on surgery site, asymptomatic.
[2018-07-13 20:00] VITALS: BP 127/62
[2018-07-13] MEDS: Atorvastatin 20mg tab ORAL SCH (20:30)
[2018-07-13] MEDS: Tamsulosin 0.4mg cap ORAL SCH (20:30)
[2018-07-13] MEDS: Morphine Sulfate 4mg/ml Inj (IV USE ONLY) IM PRN (20:38)
[2018-07-14] VITALS: BP 112/64
--- NOTE | 2018-07-14 02:15 | Progress Note ---
ACUTE PAIN MANAGEMENT PHYSICIAN PROGRESS NOTE DATE: 07/14/2018 OBJECTIVE: Vital signs within normal limits. Afebrile, pulse 62, respirations 18, and blood pressure 122/66. Oxygen saturation 98% on room air. LABORATORY STUDIES: No interval laboratory studies. MEDICATIONS: Medication administration record reviewed. Medications include Flonase, Colace, Lipitor, Flomax, Pepcid, Senokot, allopurinol, Celexa, Imdur, Marinol, Prinivil, and Norvasc. P.r.n. medications include Chloraseptic spray, Catapres, oxycodone, Mylanta, Zofran, Tylenol, Claritin, meclizine, Artificial Tears, Benadryl, morphine, Dulcolax, and Atarax. I spent over 60 minutes in consultation today. I discussed the case with the hospital pharmacist along with the nurse RN, Samara. I saw the patient at bedside. I discussed the case with the surgeon, Dr. St. The patient continues to progress well. He had large bowel movements after Dulcolax suppository earlier today. I will discontinue the scheduled Senokot. The patient does still has intermittently asked for a p.r.n. doses of Benadryl and Atarax for itching complaints. The patient continues to request breakthrough oxycodone pain medication for pain control, but the frequency has decreased somewhat to every 4 hours. I did encourage the patient to begin to titrate-off the pain medications, or at least to decrease the frequency as he has been using relatively [id number] for the past 96 hours. The patient still has been using and requesting the q.2 hours dosing of Marinol. He will continue his nightly CBD oil once he returns home. His cousin will be contacted later in the morning to pick him up and take the patient home as, as well as to drop the patient to his local pharmacy to drop off the prescription for Percocet pills, which I provided for outpatient usage. The patient has normal vital signs and has been more compliant using his incentive spirometer. He is frequently ambulating and shows no gross neurologic deficits. The patient will follow up with Dr. St in the outpatient clinic. Date to be determined by Dr. St's clinic's staff. The patient does have direct phone numbers for Dr. St as well as his airconditioning drafting officer, Criselda. He is going to provide to the patient in-writing. Gal Prater M.D. DR: DUSTY JOB#: [id number] CC:
[2018-07-14 04:00] VITALS: BP 119/63
[2018-07-14] MEDS: oxyCODONE 5mg IR tab ORAL PRN (06:35)
--- NOTE | 2018-07-14 07:02 | NUR ---
HAND-OFF: Report given to ELAN Avery.
[2018-07-14 08:00] VITALS: BP 120/66
--- NOTE | 2018-07-14 08:00 | NUR ---
NURSE NOTES: Received report from Delmer ANSARI. Patient is awake alert and oriented x4, no acute distress noted. Patient not requesting pain medication at this time, was medicated this morning. Patient states he is ready for discharge. Contacted by Dr. Prater who stated patient is clear for discharge and Dr. St will call with order. Patient is able to get in and out of bed safely, ambulates with steady gait. Side rails upx3, bed low and locked, call light in reach. Will continue to monitor.
--- NOTE | 2018-07-14 08:29 | NUR ---
NURSE NOTES: Received call from Dr. Alma Rosa MD gave discharge order. Ordered for patient to change dressing once a day with 4x4 and tegaderm at home, will instruct patient in dressing change. Order for DME placed per MD order. Will follow through as ordered.
[2018-07-14] MEDS: Flonase Nasal Inhaler 16gm NASAL SCH (08:42)
[2018-07-14] MEDS: Citalopram Hydrobromide 10mg Tab ORAL SCH (08:43)
[2018-07-14] MEDS: Dronabinol 2.5mg Cap ORAL SCH (08:43)
[2018-07-14] MEDS: Docusate 100mg cap ORAL SCH (08:43)
[2018-07-14] MEDS: Sennosides 8.6mg tab ORAL SCH (08:43)
[2018-07-14 09:00] VITALS: BP 120/66
[2018-07-14] MEDS: Imdur 30mg tab ORAL SCH (09:00)
[2018-07-14] MEDS: Lisinopril 20mg tab ORAL SCH (09:00)
--- NOTE | 2018-07-14 12:15 | NUR ---
NURSE NOTES: Patient discharged. Given discharge instructions and Rx. Patient reports understanding of provided education. Dressing changed per order from Dr. St, patient stated understanding of how to change dressing and provided with dressing change supplies. IV removed intact. Patient provided with front wheel walker and raised toilet seat per MD order. Patient instructed not to drive until cleared by Dr. St. Patient given belongings, all belongings accounted for. Patient escorted off unit via wheelchair to private vehicle by CAR PICK UP DRIVER, accompanied by patient's friend and cousin at 1155.
--- NOTE | 2018-07-15 13:51 | Discharge Summary ---
DATE OF ADMISSION: 07/09/2018 DATE OF DISCHARGE: 07/14/2018 ADMITTING PHYSICIAN AND SURGEON: Jamar St M.D. CONSULTING PHYSICIAN: Gal Prater M.D., pain management. ADMITTING DIAGNOSIS: L4-L5 lumbar disc herniation. POSTOPERATIVE DIAGNOSIS: L4-L5 lumbar disc herniation. HOSPITAL COURSE: The patient was admitted on 07/09/2018 for elective L4-L5 transforaminal lumbar interbody fusion surgery. The patient underwent the surgical procedure without incident and transferred in stable condition from the operating room to the recovery room. The patient did well in the recovery, was transferred from the recovery room to the orthopedic floor unit in stable condition. Serial monitoring was performed along with intermittent diagnostic testing including laboratory studies and lower extremity venous Doppler studies bilaterally. All studies were within normal ranges. The patient advanced with physical therapy training. The patient was followed closely by the medical staff including Dr. Gal Prater, pain management. Lumbar spine drain output diminished and the lumbar spine indwelling catheter was removed without complications. The patient advanced his diet and had a bowel movement prior to discharge. The patient was scheduled to discharge home in the care of his cousin with a prescription for Percocet for outpatient usage with instructions to follow up with Dr. St in the outpatient clinic. Gal Prater M.D. DR: LEIF JOB#: [id number] CC:
== END 2018-07-14 12:00 | disposition home or self-care (01) | DRG 460 ==
LOC: SDSOVERFLO 09:55 → EDSTATUS 12:00 → 3E 17:53
DX: M51.16 Intervertebral disc disorders with radiculopathy, lumbar region (principal); M48.061 Spinal stenosis, lumbar region without neurogenic claudication; Z88.1 Allergy status to other antibiotic agents; I10 Essential (primary) hypertension; E78.5 Hyperlipidemia, unspecified; E66.9 Obesity, unspecified; R42 Dizziness and giddiness; N40.0 Benign prostatic hyperplasia without lower urinary tract symptoms; M26.609 Unspecified temporomandibular joint disorder, unspecified side; G89.18 Other acute postprocedural pain; V89.2XXS Person injured in unspecified motor-vehicle accident, traffic, sequela; G47.00 Insomnia, unspecified; F32.9 Major depressive disorder, single episode, unspecified
CPT/HCPCS: 36415; 72020; 76000; 80048; 80307; 86850; 86900; 86901; 87081; 93970; J2250; J2405; J2710